=== PATIENT | female | born 1985 | race Caucasian/White ===

== ENCOUNTER 2016-04-06 19:32 | Emergency (ER) | payer BC ==
[2016-04-06] MEDS ORDERED: NS 0.9% 1000 ML* 2,000 ML IV ONE (20:14)
[2016-04-06] MEDS ORDERED: Ketorolac INJ* 30 MG/ML 1 ML VIAL IV ONE (20:14)
[2016-04-06] MEDS ORDERED: PROCHLORPERAZINE INJ 5 MG/ML 2 ML VIAL IV PRN (20:15)
[2016-04-06] MEDS ORDERED: diPHENhydraMINE IV* 50 MG/ML 1 ml VIAL (BENADRYL) IV ONE (20:16)
[2016-04-06] MEDS ORDERED: diPHENhydraMINE IV* 50 MG/ML 1 ml VIAL (BENADRYL) ONE (20:16)
[2016-04-06] MEDS ORDERED: HYDROmorphone* 1 MG/ML 1 ML SYR ONE (20:17)
[2016-04-06] MEDS ORDERED: Ketorolac INJ* 30 MG/ML 1 ML VIAL ONE (20:17)
--- NOTE | 2016-04-06 21:20 | ED ---
Headache - HPI Summary HPI Summary: Patient with a history of migraines arrives to ED with CC of right sided migraine radiating to the ear with a coexisting sense of "fullness." She states this is somewhat similar to her previous migraines which usually start posteriorly and radiate anteriorly, but denies previous ear involvement. This migraine has been intermittent for 3 days, and she has tried her at home migraine medications without relief. She took an Imitrex which has not relieved any of the pain. She endorses eye redness bilaterally, but worse in R eye which is intermittent. She does not see a neurologist and has never had a CT or MRI. She notes to photophobia, slight right sided aura, but no scotomas. Denies neck pain, nausea or back pain. Denies trauma, hitting her head or any LOC. - History Of Current Complaint Chief Complaint: EDHeadache Stated Complaint: HEADACHE Time Seen by Provider: 04/06/16 19:59 Hx Obtained From: Patient Onset/Duration: Sudden Onset, Started days ago Initially Headache Was: Initial Pain Scale(0-10)= - 7/10, Moderate Currently Pain Is: Current Pain Scale(0-10)= - 7/10, Moderate Timing: Intermittent, Lasting: - several minutes Character: Sharp, Throbbing, Migraine Location of Headache: Temporal, Parietal - right sided Aggravating Factor: Bright Lights Allevating Factors: Nothing, Rest Associated Signs And Symptoms: Visual Changes - scotomas, Other (Noted In Comments) - right eye redness - Risk Factors SAH Risk Factors: Negative Meningitis Risk Factors: Negative SDH Risk Factors: Negative - Allergies/Home Medications Allergies/Adverse Reactions: Allergies Allergy/AdvReac Type Severity Reaction Status Date / Time Zolmitriptan [From Zomig] Allergy Intermediate Pain Verified 04/06/16 19:39 Azithromycin Allergy Unknown Unknown Verified 04/06/16 19:39 Reaction Details Cefprozil [From Cefzil] Allergy Unknown Unknown Verified 04/06/16 19:39 Reaction Details Cefuroxime [From Ceftin] Allergy Unknown Unknown Verified 04/06/16 19:39 Reaction Details Erythromycin Allergy Unknown Unknown Verified 04/06/16 19:39 Reaction Details Loracarbef [From Lorabid] Allergy Unknown Unknown Verified 04/06/16 19:39 Reaction Details Penicillin G Allergy Unknown Unknown Verified 04/06/16 19:39 Reaction Details Sulfa Drugs Allergy Unknown Unknown Verified 04/06/16 19:39 Reaction Details PMH/Surg Hx/FS Hx/Imm Hx Previously Healthy: Yes Endocrine/Hematology History: Denies: Hx Diabetes Cardiovascular History: Denies: Hx Hypertension, Hx Pacemaker/ICD History: Denies: Hx Dialysis, Hx Renal Disease Sensory History: Denies: Hx Hearing Aid Psychiatric History: Denies: Hx Panic Disorder - Surgical History Surgery Procedure, Year, and Place: , LAMINECTOMY (L4 [facility]) 2YRS AGO Infectious Disease History: No Infectious Disease History: Denies: Traveled Outside the [place] in Last 30 Days - Family History Known Family History: Positive: Unknown - Social History Occupation: Employed Full-time Lives: With Family Alcohol Use: Rare Hx Substance Use: No Substance Use Type: Reports: None Hx Tobacco Use: No Smoking Status (MU): Never Smoked Tobacco Do You Chew or Dip Tobacco: No Have You Chewed or Dipped Tobacco in the LAST YEAR: No Review of Systems Constitutional: Negative Positive: Photophobia, Other - injected eye intermittently Positive: Ear Ache - right sided ear fullness Cardiovascular: Negative Respiratory: Negative Positive: no symptoms reported, see HPI Musculoskeletal: Negative Skin: Negative Positive: Headache - migraine Psychological: Normal All Other Systems Reviewed And Are Negative: Yes Physical Exam Triage Information Reviewed: Yes Vital Signs On Initial Exam: Initial Vitals Temp Pulse Resp BP Pulse Ox 97.2 F 77 16 146/94 100 04/06/16 19:35 04/06/16 19:35 04/06/16 19:35 04/06/16 19:35 04/06/16 19:35 Vital Signs Reviewed: Yes Appearance: Positive: Well-Appearing, Well-Nourished, Pain Distress Skin: Positive: Warm, Skin Color Reflects Adequate Perfusion Head/Face: Positive: Normal Head/Face Inspection Eyes: Positive: Normal, EOMI, YOVANNY, Conjunctiva Clear Neck: Positive: Supple, Nontender, No Lymphadenopathy Respiratory/Lung Sounds: Positive: Breath Sounds Present Cardiovascular: Positive: Normal, RRR, Pulses are Symmetrical in both Upper and Lower Extremities Musculoskeletal: Positive: Strength/ROM Intact Neurological: Positive: Sensory/Motor Intact, Alert, Oriented to Person Place, Time, Speech Normal Psychiatric: Positive: Normal, Affect/Mood Appropriate AVPU Assessment: Alert - [place] Coma Scale Best Eye Response: 4 - Spontaneous Best Motor Response: 6 - Obeys Commands Best Verbal Response: 5 - Oriented Diagnostics - Vital Signs Vital Signs Temp Pulse Resp BP Pulse Ox 04/06/16 19:35 97.2 F 77 16 146/94 100 - Laboratory Result Diagrams: 04/06/16 21:15 04/06/16 21:15 Lab Statement: Any lab studies that have been ordered have been reviewed, and results considered in the medical decision making process. Headache Course/Dx - Course Course Of Treatment: Patient arrived with right sided migraine with aura and bilateral red injected eyes without itching or pain. Hx of migraines, but normally will respond to imitrex. Migraine has been persistent for 3 days. Benadryl, comapazine and toradol given IV. Symptoms improved to 2/10 pain. Upon re-evaluation, migraine pain was increased at 5/10. Fiorecet given. Dr. Banks consulted. Pain remained 5/10. Discussed options with patient of discharge home and follow up with Dr. Desai in neurology. Patient agreed to that plan. Discharged with note for work for 1 day, benadryl, tylenol and compazine prescribed. Also Fiorecet prescibed. Encouraged patient to try 1 regimine and if fails to improve, may take the second regimine option of Fiorcet as discussed with patient. Benadryl and Compazine given to dispense to home. Assessment/Plan: Follow up with DR. Desai. - Diagnoses Differential Diagnosis/HQI/PQRI: Migraine, Sinus Headache, Tension Headache Provider Diagnoses: Migraine Is Visit Related: No Discharge - Discharge Plan Condition: Stable Disposition: HOME Prescriptions: Acetaminophen TAB* [Tylenol TAB*] 975 mg PO Q6H PRN #15 tab MDD 4 PRN Reason: Migraine Headache Butalb/Acetamin/Caff TAB* [Fioricet TAB*] 1 tab PO Q6H PRN #15 tab MDD 4 PRN Reason: Migraine Headache Prochlorperazine TAB* [Compazine Tab*] 10 mg PO Q6H PRN #15 tab MDD 4 PRN Reason: Nausea diPHENhydraMINE PO* [Benadryl PO*] 50 mg PO BID PRN #15 cap MDD 2 PRN Reason: Migraine Headache Patient Education Materials: Migraine Headache (ED), Ocular Migraine (ED) Forms: *Work Release Referrals: Tavo Heller MD [Primary Care Provider] - Lawrence Desai MD [Medical Doctor] - Additional Instructions: Follow up with neurology. Dr Desai. If symptoms worsen and are not well managed on the medications as prescribed to you, please come back to ED. Take the following at first onset of BAEZ: Compazine 10mg Tylenol 975mg Benadryl 50mg If these 3 medications do not work, take the medication Fiorcet. You may not drive on the medication Benadryl. This will make you drowsy.
[2016-04-06 21:27] LABS: Hematocrit 35 % (35-47); Hemoglobin 11.9 g/dl (12.0-16.0); Mean Corpuscular HGB Conc 34 g/dl (31-36); Mean Corpuscular Hemoglobin 28 pg (27-31); Mean Corpuscular Volume 83 fL (80-97); Mean Platelet Volume 8 um3 (7.4-10.4); Red Blood Count 4.27 10^6/ul (4.0-5.4); Red Cell Distribution Width 14 % (10.5-15); White Blood Count 8.8 10^3/ul (3.5-10.8)
[2016-04-06 21:41] LABS: Albumin 3.8 g/dL (3.2-5.2); BUN/Creatinine Ratio 21.3 (8-20); Calcium 8.8 mg/dL (8.6-10.3); EGFR African American 147.1 (>60); EGFR Non-African American 114.4 (>60); Globulin 2.6 g/dL (2-4); Potassium 3.6 mmol/L (3.5-5.0); Total Bilirubin 0.3 mg/dL (0.2-1.0); Total Protein 6.4 g/dL (6.4-8.9)
[2016-04-06] MEDS ORDERED: Butalb/Acetamin/Caff TAB* 1 TAB PO ONE (21:46)
[2016-04-06 22:10] LABS: Erythrocyte Sed Rate 13 mm/Hr (0-14)
[2016-04-06] MEDS ORDERED: Prochlorperazine TAB* 10 MG PO ONE (23:06)
[2016-04-06] MEDS ORDERED: diPHENhydraMINE PO* 25 MG PO ONE (23:06)
[2016-04-06 23:31] VITALS: BP 119/74
== END 2016-04-07 07:01 | disposition home or self-care (01) ==
LOC: ED 19:32
DX: G43.909 Migraine, unspecified, not intractable, without status migrainosus (principal); R51 Headache; H92.01 Otalgia, right ear; H53.149 Visual discomfort, unspecified
CPT/HCPCS: 36415; 80053; 85025; 85652; 96374; 96375; 99282; A9270-GY; J0780; J1170; J1200; J1885; Q0164

== ENCOUNTER 2016-04-22 10:40 | Emergency (ER) | payer BC ==
[2016-04-22] MEDS ORDERED: Dihydroergotamine (D.H.E.)* 1 MG/ML 1 ML AMP IV SLOW PU ONE ×2 (10:54→13:30)
[2016-04-22] MEDS ORDERED: Metoclopramide IV* 5 MG/ML 2 ML VIAL IV SLOW PU ONE (10:54)
[2016-04-22] MEDS ORDERED: diPHENhydraMINE IV* 25 MG in NS 0.9% 50 ML* 50 ML IVPB ONE (10:54)
[2016-04-22] MEDS ORDERED: NS 0.9% 1000 ML* 1,000 ML IV ONE (10:55)
[2016-04-22 11:47] LABS: Hematocrit 40 % (35-47); Hemoglobin 13.4 g/dl (12.0-16.0); Mean Corpuscular HGB Conc 33 g/dl (31-36); Mean Corpuscular Hemoglobin 28 pg (27-31); Mean Corpuscular Volume 84 fL (80-97); Mean Platelet Volume 8 um3 (7.4-10.4); Red Blood Count 4.82 10^6/ul (4.0-5.4); Red Cell Distribution Width 14 % (10.5-15); White Blood Count 5.7 10^3/ul (3.5-10.8)
[2016-04-22 12:01] LABS: BUN/Creatinine Ratio 17.6 (8-20); Calcium 9.2 mg/dL (8.6-10.3); EGFR African American 129.8 (>60); EGFR Non-African American 100.9 (>60); Potassium 4.1 mmol/L (3.5-5.0)
[2016-04-22 14:17] VITALS: BP 156/92
--- NOTE | 2016-04-25 09:39 | ED ---
Eufemia Anguiano Matthew, scribed for Pritesh Lopez MD on 04/22/16 at 1118 . Headache - HPI Summary HPI Summary: A 30 y/o female presents to the ED with a persistent right sided headache for the past 5 weeks. The patient's normal migraine starts in the back of her head and migrates to behind the right eye. This headache has been localized to the right sided around the ear. The pain is currently rated 3/10 in severity. The patient has tried naproxen, Benadryl, and Tylenol without relief. She denies diarrhea, vomiting, nasal congestion, sinus congestion, and recent illness. The patient has a Hx of sinus infections. No PMHx. She's had an MRI for headaches. LNMP - Currently - History Of Current Complaint Chief Complaint: EDHeadache Stated Complaint: 5WKS HEADACHE / SENT BY DR Thompson Seen by Provider: 04/22/16 10:44 Hx Obtained From: Patient Onset/Duration: Started weeks ago, Still Present Initially Headache Was: Moderate Currently Pain Is: Current Pain Scale(0-10)= - 3/10 Timing: Constant Location of Headache: Parietal - RT sided Aggravating Factor: Nothing Allevating Factors: Nothing Associated Signs And Symptoms: Negative - Allergies/Home Medications Allergies/Adverse Reactions: Allergies Allergy/AdvReac Type Severity Reaction Status Date / Time Zolmitriptan [From Zomig] Allergy Intermediate Pain Verified 04/06/16 19:39 Azithromycin Allergy Unknown Unknown Verified 04/06/16 19:39 Reaction Details Cefprozil [From Cefzil] Allergy Unknown Unknown Verified 04/06/16 19:39 Reaction Details Cefuroxime [From Ceftin] Allergy Unknown Unknown Verified 04/06/16 19:39 Reaction Details Erythromycin Allergy Unknown Unknown Verified 04/06/16 19:39 Reaction Details Loracarbef [From Lorabid] Allergy Unknown Unknown Verified 04/06/16 19:39 Reaction Details Penicillin G Allergy Unknown Unknown Verified 04/06/16 19:39 Reaction Details Sulfa Drugs Allergy Unknown Unknown Verified 04/06/16 19:39 Reaction Details PMH/Surg Hx/FS Hx/Imm Hx Endocrine/Hematology History: Denies: Hx Diabetes Cardiovascular History: Denies: Hx Hypertension, Hx Pacemaker/ICD History: Denies: Hx Dialysis, Hx Renal Disease Sensory History: Denies: Hx Hearing Aid Psychiatric History: Denies: Hx Panic Disorder - Surgical History Surgery Procedure, Year, and Place: , LAMINECTOMY (L4 [facility]) 2YRS AGO Infectious Disease History: No Infectious Disease History: Denies: Traveled Outside the [place] in Last 30 Days - Family History Family History: FHx of migraines - Social History Alcohol Use: Rare Hx Substance Use: No Substance Use Type: Reports: None Hx Tobacco Use: No Smoking Status (MU): Never Smoked Tobacco Review of Systems Constitutional: Negative Negative: Fever, Chills Eyes: Negative Negative: Erythema ENT: Negative Negative: Sore Throat Cardiovascular: Negative Negative: Chest Pain Respiratory: Negative Negative: Shortness Of Breath, Cough Gastrointestinal: Negative Negative: Abdominal Pain, Vomiting, Nausea Genitourinary: Negative Negative: dysuria, hematuria Musculoskeletal: Negative Negative: Myalgia Skin: Negative Negative: Rash Positive: Headache Psychological: Normal All Other Systems Reviewed And Are Negative: Yes Physical Exam Triage Information Reviewed: Yes Vital Signs On Initial Exam: Initial Vitals Temp Pulse Resp BP Pulse Ox 97.3 F 88 16 162/87 100 04/22/16 10:42 04/22/16 10:42 04/22/16 10:42 04/22/16 10:42 04/22/16 10:42 Vital Signs Reviewed: Yes Appearance: Positive: Well-Appearing, No Pain Distress, Well-Nourished Skin: Positive: Warm, Dry Head/Face: Positive: Other - Normocephalic; Atraumatic; right maxillaris sinus tenderness Eyes: Positive: Conjunctiva Clear ENT: Positive: Normal ENT inspection Dental: Negative: Cervical Lymphadenopathy Neck: Positive: No Lymphadenopathy, Other: - Full ROM Respiratory/Lung Sounds: Positive: Other - Normal Effort. Negative: Rales, Rhonchi, Stridor, Tracheal Deviation, Wheezes Cardiovascular: Positive: RRR. Negative: Murmur Abdomen Description: Positive: Nontender, Soft, Other: - No Rebound. Negative: Distended, Guarding Bowel Sounds: Positive: Present Musculoskeletal: Negative: Edema Left, Edema Right Neurological: Positive: Alert, Oriented to Person Place, Time Psychiatric: Positive: Affect/Mood Appropriate Diagnostics - Vital Signs Vital Signs Temp Pulse Resp BP Pulse Ox 04/22/16 10:42 97.3 F 88 16 162/87 100 - Laboratory Result Diagrams: 04/22/16 11:30 04/22/16 11:30 Lab Statement: Any lab studies that have been ordered have been reviewed, and results considered in the medical decision making process. Headache Course/Dx - Course Assessment/Plan: Dr. Shore advised and directed all of the medications provided in the ED today. - Diagnoses Provider Diagnoses: Status migrainosus - Physician Notifications Discussed Care Of Patient With: Dr. Shore (Neurology) -- Notified of patient' s history and requested medications for the patient. Discharge - Discharge Plan Condition: Stable Disposition: HOME Patient Education Materials: Migraine Headache (ED) Referrals: Barbie Shore MD [Medical Doctor] - 3 Days Additional Instructions: Please follow-up with Dr. Shore in 3 days. Return to the emergency department for changing or worsening symptoms. The documentation as recorded by the Eufemia sewell Matthew accurately reflects the service I personally performed and the decisions made by me, Pritesh Lopez MD.
== END 2016-04-22 14:20 | disposition home or self-care (01) ==
LOC: ED 10:40
DX: G43.901 Migraine, unspecified, not intractable, with status migrainosus (principal); R51 Headache
CPT/HCPCS: 36415; 80048; 85027; 96374; 99283; J1110; J1200

== ENCOUNTER 2016-11-25 15:28 | Emergency (ER) | payer BC ==
[2016-11-25 15:51] VITALS: BP 150/77
--- NOTE | 2016-11-25 16:58 | UC ---
Abdominal Pain Female HPI - HPI Summary HPI Summary: This is a 31 yo female who presents with c/o abd pain. Pain started acutely when reaching for a book ~5d ago. Pain was located in the R flank and has radiated around to her abd. She was seen by PCP 2d later who suggested it was a pinched nerve. The pain has since radiated down to her R groin region. She denies hematuria but reports her urine has been dark. She denies fever. She has been nauseated. No vomiting or diarrhea. - History of Current Complaint Chief Complaint: UCAbdominalPain Stated Complaint: ABDOMINAL PAIN Hx Last Menstrual Period: 11/09/16 Allergies/Adverse Reactions: Allergies Allergy/AdvReac Type Severity Reaction Status Date / Time Zolmitriptan [From Zomig] Allergy Intermediate Pain Verified 11/25/16 15:52 Azithromycin Allergy Unknown Unknown Verified 11/25/16 15:52 Reaction Details Cefprozil [From Cefzil] Allergy Unknown Unknown Verified 11/25/16 15:52 Reaction Details Cefuroxime [From Ceftin] Allergy Unknown Unknown Verified 11/25/16 15:52 Reaction Details Erythromycin Allergy Unknown Unknown Verified 11/25/16 15:52 Reaction Details Loracarbef [From Lorabid] Allergy Unknown Unknown Verified 11/25/16 15:52 Reaction Details Penicillin G Allergy Unknown Unknown Verified 11/25/16 15:52 Reaction Details Sulfa Drugs Allergy Unknown Unknown Verified 11/25/16 15:52 Reaction Details PMH/Surg Hx/FS Hx/Imm Hx Previously Healthy: Yes - Surgical History Surgical History: Yes Surgery Procedure, Year, and Place: , LAMINECTOMY (L4 [facility]) 2YRS AGO - Family History Known Family History: Positive: None Family History: FHx of migraines - Social History Alcohol Use: Rare Substance Use Type: None Smoking Status (MU): Former Smoker - Immunization History Most Recent Influenza Vaccination: last year will get ths year Most Recent Tetanus Shot: 11-12 Review of Systems Constitutional: Negative Skin: Negative Eyes: Negative ENT: Negative Respiratory: Negative Cardiovascular: Negative Gastrointestinal: Abdominal Pain, Nausea Genitourinary: Negative Motor: Negative Neurovascular: Negative Musculoskeletal: Negative Neurological: Negative Psychological: Negative Is Patient Immunocompromised?: No All Other Systems Reviewed And Are Negative: Yes Physical Exam Triage Information Reviewed: Yes Appearance: Pain Distress - mild Vital Signs: Initial Vital Signs Temp 98.8 F 10/19/17 15:45 Pulse 80 11/25/16 15:45 Resp 16 11/25/16 15:45 BP 150/77 11/25/16 15:45 Pulse Ox 100 11/25/16 15:45 Vital Signs Reviewed: Yes ENT: Positive: Normal ENT inspection Dental Exam: Normal Neck exam: Normal Neck: Positive: Supple, Nontender Respiratory Exam: Normal Respiratory: Positive: Chest non-tender, Lungs clear. Negative: Crackles, Rhonchi, Wheezing Cardiovascular: Positive: RRR, No Murmur Abdomen Description: Positive: CVA Tenderness (R), Other: - R sided abd TTP Musculoskeletal Exam: Normal Musculoskeletal: Positive: Strength Intact Neurological Exam: Normal Neurological: Positive: Alert Skin Exam: Normal Skin: Negative: rashes Diagnostics - Laboratory Diagnostic Studies Completed/Ordered: UA - WNL Abd Pain Female Course/Dx - Course Course Of Treatment: This is an otherwise healthy 31 yo female who presents with R flank pain. She has a nl UA, no fevers. Likely MS in nature based on the timing of onset corresponding with her reaching. - Differential Dx/Diagnosis Differential Diagnosis: , Renal Colic, Urinary Tract Infection Provider Diagnoses: 1. R flank pain - likely musculoskeletal Discharge - Discharge Plan Condition: Stable Disposition: HOME Patient Education Materials: Flank Pain (ED) Referrals: Tavo eHller MD [Primary Care Provider] - If Needed Additional Instructions: Instructions: 1. Take the medication prescribed by your PCP as recommended 2. Apply a heating pad to your mid back for pain relief 3. Seek care in the ER if your pain gets worse or you develop a fever
== END 2016-11-25 17:30 | disposition home or self-care (01) ==
LOC: UCEAST 15:28
DX: R10.31 Right lower quadrant pain (principal); Z88.3 Allergy status to other anti-infective agents; Z88.0 Allergy status to penicillin; Z88.2 Allergy status to sulfonamides; Z87.891 Personal history of nicotine dependence
CPT/HCPCS: 81003; 99211; G0463

== ENCOUNTER 2023-01-26 04:25 | Observation (INO) ==
[2023-01-26] MEDS ORDERED: Ondansetron 4 mg VIAL 2 MG/ML 2 ml VIAL IV ONE ×2 (05:13→10:36)
[2023-01-26] MEDS ORDERED: Famotidine IV 10 MG/ML 2 ml VIAL (20 mg) IV SLOW PU ONE (05:13)
[2023-01-26 05:22] LABS: ABS Basophils 0.1 10^3/uL (0.0-0.1); ABS Eosinophils 0.3 10^3/uL (0.0-0.5); ABS Monocytes 0.8 10^3/uL (0.0-0.9); ABS Neutrophils 9.9 10^3/uL (1.5-7.6); Eosinophil % 2.5 %; Hematocrit 40.2 % (35-45); Hemoglobin 13.4 g/dL (11.5-14.3); Lymphocyte % 14.9 %; Mean Corpuscular Hemoglobin 26.8 pg (27-33); Mean Corpuscular Hgb Conc 33.3 g/dL (31-36); Mean Corpuscular Volume 80.7 fL (80-97); Mean Platelet Volume 7.2 fL (7.5-11.2); Platelet Count 380 10^3/uL (150-450); Red Blood Count 4.99 10^6/uL (3.63-4.92); Red Cell Distribution Width 16.2 % (12-17); White Blood Count 13.1 10^3/uL (3.8-11.8)
[2023-01-26 05:43] LABS: ALT 14 U/L (7-52); AST 15 U/L (13-39); Albumin 4.5 g/dL (3.2-5.2); Albumin/Globulin Ratio 1.6 (1-3); Alkaline Phosphatase 52 U/L (35-149); Anion Gap 14 mmol/L (2-16); Blood Urea Nitrogen 15 mg/dL (6-24); C Reactive Protein 33.17 mg/L (<8.01); CO2 Carbon Dioxide 20 mmol/L (22-32); Calcium 9.6 mg/dL (8.6-10.3); Chloride 105 mmol/L (101-111); Creatinine, Serum 0.74 mg/dL (0.51-0.95); Globulin 2.9 g/dL (2-4); Glucose 147 mg/dL (70-100); Lipase 16 U/L (11.0-82.0); Potassium 3.7 mmol/L (3.5-5.0); Sodium 139 mmol/L (135-145); Total Bilirubin 0.6 mg/dL (0.2-1.0); Total Protein 7.4 g/dL (6.4-8.9); eGFR CKD-EPI 106.1 (>60)
[2023-01-26 05:50] LABS: HCG Pregnancy < 0.60 mIU/mL
[2023-01-26] MEDS ORDERED: Morphine 4 MG/ML VIAL (1 ml) IV ONE ×2 (06:52→09:04)
[2023-01-26] MEDS ORDERED: NS 0.9% 1000 ml BAG 1,000 ML IV ONE (07:19)
[2023-01-26] MEDS ORDERED: Iohexol 350 (CONTRAST) 500 ML MDV IV ONE (08:58)
[2023-01-26 10:08] LABS: Urine Appearance Cloudy; Urine Bilirubin Negative (Negative); Urine Blood 3+ (Negative); Urine Color Yellow; Urine Glucose Negative (Negative); Urine Ketones Negative (Negative); Urine Nitrite Negative (Negative); Urine Protein 1+(30 mg/dL) (Negative); Urine Specific Gravity 1.039 (1.002-1.030); Urine Urobilinogen Negative (Negative)
[2023-01-26 10:13] LABS: Urine Bacteria 1+ (Absent); Urine Red Blood Cell 3+(>10/hpf) (Absent); Urine Squamous Epithelial Cell Present (Absent); Urine White Blood Cell 1+(6-10/hpf) (Absent)
[2023-01-26] MEDS ORDERED: Prochlorperazine 5 mg/ml 2 ml VIAL (10 mg) IV ONE (11:33)
[2023-01-26] MEDS ORDERED: Lactated Ringers 1000 ml BAG 1,000 ML IV SCH (12:00)
[2023-01-26] MEDS ORDERED: Midazolam 10 mg/10 ml VIAL 1 mg/ml 10 ml VIAL (10 mg) ONE (13:54)
[2023-01-26] MEDS ORDERED: fentaNYL 100 mcg/2 ml 50 MCG/ML VIAL ONE (13:54)
[2023-01-26] MEDS ORDERED: Morphine 2 MG/ML SYRINGE IV PRN (14:08)
[2023-01-26] MEDS ORDERED: Ondansetron 4 mg VIAL 2 MG/ML 2 ml VIAL IV PRN (14:10)
[2023-01-26 19:12] VITALS: BP 140/83
== END 2023-01-26 18:42 | disposition left against medical advice (07) ==
LOC: ED 04:25 → EDHOLD 04:25 → MEDTELE 15:29
PROVIDERS: ADMIT Internal Medicine; ATTEND Internal Medicine